=== PATIENT | female | born 1995 | race African-American/Black ===

== ENCOUNTER 2019-03-10 10:08 | Emergency (ER) | payer MEDICAID ==
[~2019-03-10] VITALS: Ht 160 cm; Wt 62.6 kg
[2019-03-10 11:05] VITALS: BP 119/75
[2019-03-10] MEDS ORDERED: ACETAMINOPHEN 500 MG TAB PO ONE (11:15)
== END 2019-03-10 12:02 | disposition home or self-care (01) ==
LOC: ER 10:18
DX: S00.531A Contusion of lip, initial encounter (principal); Y04.8XXA Assault by other bodily force, initial encounter; Y93.89 Activity, other specified; Y92.89 Other specified places as the place of occurrence of the external cause; Y99.8 Other external cause status